=== PATIENT | female | born 1995 | race Caucasian/White ===

== ENCOUNTER 2018-05-21 19:57 | Emergency (ER) | payer SELFPAY ==
[~2018-05-21] VITALS: Ht 162.6 cm; Wt 84.8 kg
[2018-05-21] MEDS ORDERED: REGLAN10 MG PO (21:03)
== END 2018-05-21 22:00 | disposition home or self-care (01) ==
LOC: ED 19:57
DX: O21.0 Mild hyperemesis gravidarum (principal); Z3A.01 Less than 8 weeks gestation of pregnancy; Z91.040 Latex allergy status
CPT/HCPCS: 84703; 96372; 99284; J2765

== ENCOUNTER 2019-11-25 01:17 | Emergency (ER) | payer SELFPAY ==
[~2019-11-25] VITALS: Ht 162.6 cm; Wt 84.8 kg
[~2019-11-25 01:17] MED LIST: REGLAN10 MG PO
== END 2019-11-25 06:07 | disposition home or self-care (01) ==
LOC: ED 01:17
DX: F10.129 Alcohol abuse with intoxication, unspecified (principal)
CPT/HCPCS: 51701; 80053; 80176; 81001; 84443; 84703; 85025; 99284-25; G0480